=== PATIENT | female | born 1985 | race African-American/Black ===

== ENCOUNTER 2019-10-29 22:25 | Inpatient (IN) | payer OTHER, SELFPAY ==
[2019-10-29] VITALS (21 sets, daily range): BP systolic 105–161; BP diastolic 31–120; PULSE 79–113; TEMP 37.1; O2SAT 98–100
[2019-10-29] MEDS: LACTATED RINGERS 1,000 ML 125 ML IV CONT (23:00)
[2019-10-29 23:04] LABS: Glucose Point of Care 76 (65-105)
[2019-10-29 23:06] LABS: Basophils Percent Auto 0.3 % (0.2-1.2); Eosinophils Absolute Auto 0.2 K/mm3 (0-0.3); Eosinophils Percent Auto 1.2 % (0-4.4); Hematocrit 33.1 % (37.0-47.0); Hemoglobin 10.5 g/dL (12.0-15.0); Immature Granulocyte Absolute 0.12 K/mm3 (0.00-0.031); Lymphocytes Absolute Auto 3.32 K/mm3 (0.9-3.2); Lymphocytes Percent Auto 26.8 % (18.3-44.2); Mean Corpuscular HGB Conc 31.7 g/dl (32-36); Mean Corpuscular Hemoglobin 26.9 pg (26-34); Mean Corpuscular Volume 84.7 fl (80-100); Mean Platelet Volume 9.6 fl (7.4-10.4); Monocytes Absolute Auto 1.3 K/mm3 (0.1-0.6); Monocytes Percent Auto 10.4 % (2.6-8.5); Neutrophils Absolute Auto 7.5 K/mm3 (1.3-6.7); Neutrophils Percent Auto 60.3 % (45.5-73.1); Platelet Count Result 383 k/mm3 (150-375); Red Blood Count 3.91 M/mm3 (4.2-5.4); Red Cell Distribution Width 16.1 % (11.5-14.5); White Blood Count 12.4 K/mm3 (4.5-10.0)
--- NOTE | 2019-10-29 23:12 | WPDANESEPP ---
Anes - Eval Pre Procedure Procedure: Labor epidural Date/Time: 10/29/19 23:12 Surgeon: uzma Preop Diagnosis: Abd pain with contractions Pre Op Diagnosis: cxn Patient Data Age: 34 Gender: F Height: Weight: Last Vital Signs Pulse 86 10/29/19 23:01 BP 154/86 H 10/29/19 23:01 Allergies Allergy/AdvReac Type Severity Reaction Status Date / Time Dairy Allergy Unknown CRAMPING Uncoded 10/09/19 16:50 N/V Home Medications Medication Instructions Recorded Confirmed Type PNV cmb#95-ferrous fumarate-FA 1 tablet PO DAILY 10/17/19 10/17/19 History [] sjfgkesapj-zejkzdbapnjss-ohef 1 cap PO Q4-6H PRN 10/17/19 10/17/19 History diphenhydramine HCl [Benadryl] 25 mg PO HS 10/17/19 10/17/19 History insulin lispro [Humalog U-100 6 unit SUBCUT QAM 10/17/19 10/17/19 History Insulin] insulin lispro [Humalog U-100 10 unit SUBCUT QACDINNER 10/17/19 10/17/19 History Insulin] insulin regular human [Humulin R 14 unit SUBCUT QACBREAK 10/17/19 10/17/19 History Regular U-100 Insuln] insulin regular human [Humulin R 28 unit SUBCUT ACHS 10/17/19 10/17/19 History Regular U-100 Insuln] metformin 500 mg PO BID 10/17/19 10/17/19 History valacyclovir [Valtrex] 1,000 mg PO DAILY 10/17/19 10/17/19 History Laboratory Tests 10/29/19 10/29/19 10/29/19 22:57 22:57 22:57 WBC Pending RBC Pending Hgb Pending Hct Pending MCV Pending MCH Pending MCHC Pending RDW Pending Plt Count Pending MPV Pending Immature Gran % (Auto) Pending Neut % (Auto) Pending Lymph % (Auto) Pending Gregory % (Auto) Pending Eos % (Auto) Pending Baso % (Auto) Pending Lymph # (Auto) Pending Gregory # (Auto) Pending Eos # (Auto) Pending Baso # (Auto) Pending Abs Immat Gran (auto) Pending Absolute Neuts (auto) Pending Absolute Nucleated RBC Pending Nucleated RBC % Pending POC Capillary Glucose 76 mg/dl mg/dl (65-105) RPR Pending Patient hx anesthesia problems: none Family hx anesthesia problems: none PMFSH Past Medical History Medical History (Updated 10/29/19 @ 23:14 by You Francisco CRNA) Diabetes Hemorrhoids IBS (irritable bowel syndrome) Migraines Ulcerative colitis Surgical History Surgical History (Updated 10/29/19 @ 23:14 by You Francisco CRNA) H/O hemorrhoidectomy Family History Family History Mother Hypertension Family history of elevated blood lipids Family history of diabetes mellitus in first degree relative Social History Social History Smoking status: Never smoker Alcohol intake: never Substance use: never Gender identity (if verbalized by the patient): Female Spiritual care concerns: No Exam Day of Procedure 10/29/19 23:12
[2019-10-30] VITALS (21 sets, daily range): BP systolic 89–163; BP diastolic 55–148; PULSE 87–133; RESP 12–16; TEMP 36.5–37; O2SAT 98–100; BMI 40.9
--- NOTE | 2019-10-30 01:14 | WPDOBADMIT ---
Obstetrics - Admit Note Admission Note: record reviewed. No pertinent additions to the history and/or any subsequent changes in the physical findings that are not consistent with the expected course of the were found. Additions to the history and/or subsequent changes in the physical findings follow. Pt. here at 38 6/7 wks with active labor. Patient 7 cm on arrival. complicated by NIDDM. On my arrival, c/p with FHTs reactive
--- NOTE | 2019-10-30 01:15 | P.PCNOB_ITS ---
OB - Delivery Note Procedure Delivery date: 10/30/19 Intrapartal events: Diabetes Induction method: none Delivery monitor: external FHT and external uterine Route of delivery: Laceration description: Periurethral - 1st Degree (no repair needed) Specimen: Yes Estimated blood loss (mL): 200 Anesthesia type: Epidural Disposition: floor [place] Baby Date of : 10/30/19 Weeks of gestation at delivery: 39 Infant gender: Female Weight (pounds): 7 Weight (ounces): 13 presentation: vertex Placenta delivery description: Spontaneous cord vessel description: 3 Vessels score one minute: 9 score five minutes: 9
[2019-10-30] MEDS: METHYLERGONOVINE MALEATE 0.2 MG/ML VIAL IM (01:16)
--- NOTE | 2019-10-30 01:16 | PM.OBDSVD ---
DS: Diagnosis Discharge Diagnosis (1) 39 weeks gestation of : Code(s): Z3A.39 - 39 weeks gestation of Status: Acute (2) (normal spontaneous vaginal delivery): Code(s): O80 - Encounter for full-term uncomplicated delivery Status: Acute (3) Diabetes: Code(s): E11.9 - Type 2 diabetes mellitus without complications Status: Acute OB - DS: Summary OB Procedures : NST and Ultrasound OB Procedures Intrapartum: Spontaneous Vag Delivery OB Procedures: : None Time Spent with Patient Time attestation: Total time spent providing and/or coordinating discharge services: DS: Data Data Completed and Pending Labs on day of discharge: Labs from last 24 hours 10/29/19 10/29/19 10/29/19 22:57 22:57 22:57 WBC 12.4 H RBC 3.91 L Hgb 10.5 L Hct 33.1 L MCV 84.7 MCH 26.9 MCHC 31.7 L RDW 16.1 H Plt Count 383 H MPV 9.6 Immature Gran % (Auto) 1.0 H Neut % (Auto) 60.3 Lymph % (Auto) 26.8 [place] % (Auto) 10.4 H Eos % (Auto) 1.2 Baso % (Auto) 0.3 Lymph # (Auto) 3.32 H [place] # (Auto) 1.3 H Eos # (Auto) 0.2 Baso # (Auto) 0.0 Abs Immat Gran (auto) 0.12 H Absolute Neuts (auto) 7.5 H Absolute Nucleated RBC 0.0 Nucleated RBC % 0.0 POC Capillary Glucose 76 RPR Pending Discharge Plan Discharge Attending physician on discharge: Velia Gaviria Discharging Clinician: Velia Gaviria Anticipated Discharge Date/Time: 11/01/19 01:17 Patient Disposition: Home, Self-Care Activity: may shower and pelvic rest Diet: diabetic Discharge Instructions: Education: Mom and Baby Guide Given to: Mother Follow-Up: Call your delivering provider's office for an appointment to be seen in: 6 Weeks Mom and baby should come to the [facility] for the follow-up appointment. Appointment Date/Time: November 02, 2019 at 9:00 am What to expect at your follow-up visit: Blood Pressure Check Physical Assessment Call [phone] if you are unable to keep your appointment time. BREAST CARE: Bottle Feeding: A. May apply ice packs PERINEAL CARE: 1. Until bleeding stops, use your linda bottle after urinating 2. Change your pad frequently throughout the day 3. You may take sitz baths several times a day (fill your bathtub with warm water and soak for 20 minutes.) Do NOT bathe in the water 4. No tub baths until seen by your physician - You may shower ACTIVITY: 1. Rest as much as possible. 2. Do not exercise or lift anything heavier than your baby (such as laundry or other children.) 3. Avoid stairs or driving as much as possible. 4. Do not put anything into the vagina. No douching, tampons, or sexual activity until seen by physician. NOTIFY PHYSICIAN IF YOU HAVE ANY QUESTIONS OR IF ANY OF THE FOLLOWING SYMPTOMS OCCUR: 1. If your perineum becomes red, swollen, or more painful than what you have experienced in the hospital. 2. If your vaginal bleeding becomes foul smelling. 3. If your vaginal bleeding becomes more heavy than a period or if your bleeding changes from reddish brown to bright red. However, you may pass an occasional walnut-sized clot once or twice for the first week . 4. If you experience a sharp, shooting pain in your calves. 5. If you discover a hard, reddened area on your breast or if you experience flu-like symptoms. DIET: 1. Eat regular, well-balanced meals. 2. Drink plenty of fluids daily. Stand Alone Forms: General Discharge Information Follow-up/Referrals: Gavin Kline MD [Physician] - 6 Weeks Discharge Medications: New Dermoplast (with menthol) 20-0.5 % Aerosol 1 spray topical PRN PRN (Reason: Perineal Discomfort) Qty: 1 RF: 0 polysaccharide iron complex 150 mg iron Capsule 150 mg PO BIDWM Qty: 60 RF: 0 norethindrone (contraceptive) [Melissa] 0.35 mg tablet 0.35
[2019-10-30] MEDS: BENZOCAINE 20% AER SPR (*SP) 56 GM CAN 1 SPRAY TOPICAL (03:28)
[2019-10-30] MEDS: WITCH HAZEL 40 PADS 1 PAD TOPICAL (03:28)
[2019-10-30] MEDS: IBUPROFEN 600 MG TABLET PO ×4 (04:07→23:19)
--- NOTE | 2019-10-30 04:27 | OBPPTRN ---
Patient transferred to post room # via ( ). Support person present. Oriented to unit, room, information board, rooming in, admission packet and security measures. Patient verbalizes understanding.
[2019-10-30 06:49] LABS: Glucose Point of Care 149 (65-105)
[2019-10-30 07:16] LABS: Rapid Plasma Reagin Non-Reactive (NonReactive)
[2019-10-30] MEDS: DOCUSATE SODIUM 100 MG CAPSULE PO ×2 (07:18→17:24)
[2019-10-30] MEDS: metFORMIN HCL 500 MG TABLET PO ×2 (07:18→17:24)
--- NOTE | 2019-10-30 14:45 | PC.NURSE ---
Consult with pt., mother chooses to pump and bottle feed. Breast pump provided due to her choice. Instructions given on breast pump care and usage, pumping schedule, nipple care, and collection and storage of breast milk. Encouraged [id number], breast massage and manual expression to stimulate supply. . Assessed patient for correct flange size, placement and draw. Patient verbalizes and demonstrates understanding of instructions.
[2019-10-30] MEDS: DIBUCAINE 1% OINTMENT 30 GM TUBE 1 APPLIC TOPICAL (17:25)
[2019-10-30] MEDS: LORATADINE 10 MG TABLET PO (19:42)
[2019-10-30] MEDS: ACETAMINOPHEN 325 MG TABLET 650 MG PO (20:52)
[2019-10-31] MEDS: ACETAMINOPHEN 325 MG TABLET 650 MG PO ×4 (03:57→22:59)
[2019-10-31] MEDS: IBUPROFEN 600 MG TABLET PO ×3 (05:18→21:44)
[2019-10-31 05:43] LABS: Hematocrit 31.5 % (37.0-47.0); Hemoglobin 9.8 g/dL (12.0-15.0)
--- NOTE | 2019-10-31 07:35 | P.PNOB_ITS ---
OB - PN: Subj Subjective Date/time seen: 10/31/19 07:35 Patient comments: no complaints baby status: doing well [place] feeding status: pumping and bottle feeding OB - PN: Obj Data Labs CBC & Chem 7: 10/31/19 04:13 Labs: Laboratory Results - last 24 hr 10/31/19 04:13 Hgb 9.8 L Hct 31.5 L OB - PN A/P Assessment and Plan (1) Diabetes: Code(s): E11.9 - Type 2 diabetes mellitus without complications Status: Acute Assessment and Plan: continue metformin (2) (normal spontaneous vaginal delivery): Code(s): O80 - Encounter for full-term uncomplicated delivery Status: Acute Assessment and Plan: continue pp care Time Spent With Patient Time: Total time spent is greater than 50% in coordination of care (as documented) at patient's floor/unit and/or counseling patient: Exam : Bimanual exam- vagina & uterus: other (Uterus firm, nt @U)
[2019-10-31 07:40] VITALS: BP 145/90; PULSE 88; RESP 15; TEMP 36.5; O2SAT 90
[2019-10-31] MEDS: POLYSACCHARIDE IRON COMPLEX 150 MG CAPSULE PO ×3 (08:48→16:32)
[2019-10-31] MEDS: DOCUSATE SODIUM 100 MG CAPSULE PO ×2 (08:48→16:33)
[2019-10-31] MEDS: metFORMIN HCL 500 MG TABLET PO ×2 (08:49→16:32)
--- NOTE | 2019-10-31 17:20 | PC.NURSE ---
On 10/31/19, the student, [ Steffen Arias], provided care and completed [facility] documentation on this patient. I have reviewed the student's documentation and agree with the findings.
[2019-10-31 19:15] VITALS: BP 143/91; PULSE 94; RESP 14; TEMP 36.6; O2SAT 98
[2019-10-31 21:45] VITALS: BP 134/77
--- NOTE | 2019-11-01 02:23 | PC.NURSE ---
Patient viewed the discharge video Mother & Baby Care, The First Two Weeks . Patient was given the opportunity and encouraged to ask questions. Patient verbalized understanding of information shared and has been given the mother/baby guide for home reference.
[2019-11-01] MEDS: IBUPROFEN 600 MG TABLET PO ×2 (04:12→11:22)
[2019-11-01] MEDS: ACETAMINOPHEN 325 MG TABLET 650 MG PO ×2 (04:12→11:21)
[2019-11-01 08:00] VITALS: BP 142/74; PULSE 89; RESP 20; TEMP 36.9; O2SAT 94
[2019-11-01] MEDS: DOCUSATE SODIUM 100 MG CAPSULE PO (09:13)
[2019-11-01] MEDS: metFORMIN HCL 500 MG TABLET PO (09:14)
[2019-11-01] MEDS: POLYSACCHARIDE IRON COMPLEX 150 MG CAPSULE PO (09:14)
--- NOTE | 2019-11-01 11:35 | PC.NURSE ---
Mother chooses to pump and bottle feed. Mother continues to pump without difficulties or discomfort. Mother's milk is in transition, pumping 10mls per session. Reviewed instructions given on breast pump care and usage, pumping schedule, nipple care, and collection and storage of breast milk. Encouraged [id number], breast massage and manual expression to stimulate supply. Assessed patient for correct flange size, placement and draw. Patient verbalizes and demonstrates understanding of instructions. Mother is feeding as required and waking infant to feed if needed. Infant is currently meeting outcomes for weight, output, jaundice and feeding frequencies. Mother states she feels confident to continue effective at home. Reviewed transition to breast milk, signs of adequate intake, and engorgement/relief. Instructed to call ICP if intake/output less than required. Reviewed regular medications mother is taking. Information provided per Sarita. Reviewed community resources on the [facility] website and in the Mom/Baby guide. Information on outpatient services provided. Mother has no further questions at this time.
--- NOTE | 2019-11-01 12:09 | PM.OBPNVD ---
OB - PN: Subj Subjective Date/time seen: 11/01/19 12:09 Patient comments: no complaints feeding status: pumping and storing Narrative: doing well no complaints. OB - PN: Obj Data Labs CBC & Chem 7: 10/31/19 04:13 OB - PN A/P Assessment and Plan (1) (normal spontaneous vaginal delivery): Code(s): O80 - Encounter for full-term uncomplicated delivery Status: Acute Assessment and Plan: doing well will d/c home with micronor start at 4 weeks . will restart nph at hs 12 units. call blood sugas in 1 week. Time Spent With Patient Time: Total time spent is greater than 50% in coordination of care (as documented) at patient's floor/unit and/or counseling patient: Exam Const: General: comfortable : Other: uterus at umbilicus
[2019-11-02 09:25] VITALS: BP 148/89; PULSE 90; RESP 18; TEMP 36.7
== END 2019-11-01 17:25 | disposition home or self-care (01) | DRG 807 ==
LOC: ANHLDR 10-30 01:19 → ANHOB2 10-30 03:55
PROVIDERS: Obstetrics & Gynecology Gynecology; Admitting Provider Obstetrics & Gynecology; Visit Provider Obstetrics & Gynecology
DX: O24.12 Pre-existing type 2 diabetes mellitus, in childbirth (principal); Z37.0 Single live birth; Z3A.39 39 weeks gestation of pregnancy; E11.9 Type 2 diabetes mellitus without complications; O99.62 Diseases of the digestive system complicating childbirth; K58.9 Irritable bowel syndrome, unspecified; O70.0 First degree perineal laceration during delivery
CPT/HCPCS: 36415; 85014; 85018; 85025; 86592; 86850; 86900; 86901; 88307; A9270; J2210; J2590; J2795; J7120

== ENCOUNTER → 2021-04-02 07:12 | Outpatient (CLI) | payer OTHER, SELFPAY ==
[2021-04-02 17:20] LABS: SARS-CoV-2 RNA PCR Positive
== END ==
PROVIDERS: PCP Family Medicine; Visit Provider Family Medicine
DX: U07.1 COVID-19 (principal); R68.89 Other general symptoms and signs
CPT/HCPCS: C9803; U0003; U0005

== ENCOUNTER → 2021-09-01 02:27 | Outpatient (CLI) | payer OTHER, SELFPAY ==
[2021-09-02 19:33] LABS: SARS-CoV-2 RNA PCR Negative
== END ==
PROVIDERS: Physician Assistant; PCP Family Medicine; Visit Provider Family Medicine
DX: Z20.822 Contact with and (suspected) exposure to COVID-19 (principal)
CPT/HCPCS: C9803; U0003; U0005

== ENCOUNTER 2024-06-17 11:19 | Outpatient (CLI) | payer BC, SELFPAY ==
--- NOTE | ~2024-06-17 | US_ITS ---
EXAMINATION: US thyroid DATE: 06/17/2024 12:08 INDICATION: Iodine deficiency related diffuse goiter. TECHNIQUE: Multiple ultrasound images of the thyroid were obtained. COMPARISON: None. FINDINGS: The right thyroid lobe measures 4.3 x 1.0 x 1.3 cm. The left thyroid lobe measures 4.4 x 1.2 x 1.7 c m. There is normal echotexture and echogenicity throughout the thyroid gland. No discrete nodules id entified. Normal vascular flow is present. IMPRESSION: 1. Normal thyroid. Reviewed, dictated and finalized at location A. IMPRESSION: 1. Normal thyroid.
== END 2024-06-17 11:20 | disposition home or self-care (01) ==
LOC: MICIMG 11:19
PROVIDERS: PCP Family Medicine; Visit Provider Family Medicine
DX: E01.0 Iodine-deficiency related diffuse (endemic) goiter (principal)
CPT/HCPCS: 76536